=== PATIENT | male | born 1940 ===

== ENCOUNTER 2024-05-20 09:45 | Emergency (ER) | payer SELFPAY ==
[2024-05-20 10:04] VITALS: BP 134/51; PULSE 71; RESP 20; TEMP 36.5; O2SAT 97; BMI 27.0
--- NOTE | 2024-05-20 15:03 | PC.NURSE ---
Blood work to be added however pt declines blood work at this time
== END 2024-05-20 16:06 | disposition left against medical advice (07) ==
PROVIDERS: Emergency Provider Emergency Medicine; PCP Internal Medicine
DX: F41.9 Anxiety disorder, unspecified (principal)
CPT/HCPCS: 99281